=== PATIENT | male | born 1980 | race Caucasian/White ===

== ENCOUNTER 2023-01-18 05:41 | Day surgery (SDC) | payer SELFPAY ==
[2023-01-17 10:02] LABS: BASOPHILS % (AUTO) 0.7 % (0-1); EOSINOPHILS # (AUTO) 0.2 X10'3 (0-0.9); EOSINOPHILS % (AUTO) 2.8 % (0-6); LYMPHOCYTES # (AUTO) 1.2 X10'3 (1.1-4.8); LYMPHOCYTES % (AUTO) 17.5 % (21-51); MEAN CORPUSCULAR HEMOGLOBIN 30.6 PG (27.0-31.0); MEAN CORPUSCULAR HGB CONC 33.1 g/dL (33.0-36.5); MEAN CORPUSCULAR VOLUME 92.5 FL (78-98); MEAN PLATELET VOLUME 8.1 FL (7.4-10.4); MONOCYTES # (AUTO) 0.5 X10'3 (0-0.9); MONOCYTES % (AUTO) 7.2 % (2-12); NEUTROPHILS # (AUTO) 4.9 X10'3 (1.8-7.7); NEUTROPHILS % (AUTO) 71.8 % (42-75); PRE OP HEMATOCRIT 47.1 % (42.0-52.0); PRE OP HEMOGLOBIN 15.6 g/dL (14.0-17.9); PRE OP PLATELET COUNT 300 X10'3 (140-440); PRE OP WHITE BLOOD COUNT 6.8 10'3 (4.8-10.8); RED BLOOD COUNT 5.09 X10'6 (4.70-6.10); RED CELL DISTRIBUTION WIDTH 13.1 % (11.5-14.5)
[2023-01-17 10:12] LABS: ALBUMIN 3.8 G/DL (3.4-5.0); ALBUMIN/GLOBULIN RATIO 1.2 (1.1-1.5); ALKALINE PHOSPHATASE 65 IU/L (46-116); BLOOD UREA NITROGEN 15 MG/DL (7-18); CALCIUM 8.7 MG/DL (8.5-10.1); CHLORIDE 104 MMOL/L (99-107); CREATININE 0.88 MG/DL (0.60-1.10); PRE OP ALT 17 U/L (30-65); PRE OP ANION GAP 5 (8-16); PRE OP AST 14 U/L (10-37); PRE OP BILIRUB, TOTAL 0.3 MG/DL (0.0-1.0); PRE OP GLUCOSE 130 MG/DL (70-104); PRE OP SODIUM 140 MMOL/L (135-145); TOTAL CARBON DIOXIDE 30.8 MMOL/L (24-32); TOTAL PROTEIN 7.1 G/DL (6.4-8.2); eGFR > 90 ML/MIN
[~2023-01-18] VITALS: Ht 193 cm; Wt 108.0 kg
[2023-01-18] VITALS (7 sets, daily range): BP systolic 113–136; BP diastolic 70–86; PULSE 66–81; RESP 11–18; TEMP 98.4; O2SAT 97–100
[~2023-01-18 05:41] MED LIST: CEPH-585 PO; MAGNESIUM; METHYL B; VIT D; cefazolin 2gm/D5W 100mL 100 ML IV ONE; famotidine 20mg tablet PO ONE; ringers solution, lacted 1,000 ML IV SCH
[2023-01-18] MEDS ORDERED: BUPIVAcaine/PF 2.5 mg/ml (0.25%) 30ml vial ONE ×2 (06:37→06:50)
[2023-01-18] MEDS ORDERED: bacitracin 15gm ointment TP ONE (06:37)
[2023-01-18] MEDS ORDERED: midazolam 1 mg/ML 2ml injection ONE (07:13)
[2023-01-18] MEDS ORDERED: fentaNYL/PF 50MCG/1 ML 2ML syringe ONE (07:13)
[2023-01-18] MEDS ORDERED: etomidate 2mg/ml inj. ONE (07:13)
[2023-01-18] MEDS ORDERED: LIDOcaine 2% (20mg/ml) 5ml vial ONE (07:14)
[2023-01-18] MEDS ORDERED: propofol inj 20 ML IV ONE (07:14)
[2023-01-18] MEDS ORDERED: ondansetron/PF 4mg/2ml inj ONE (07:14)
[2023-01-18] MEDS ORDERED: dexamethasone sod phosphate 4mg/ml inj. ONE (07:14)
[2023-01-18] MEDS ORDERED: sevoflurane 250ml liquid IH ONE (07:19)
[2023-01-18] MEDS ORDERED: morphine 4 MG/ML inj SYRINge IV PRN (07:20)
[2023-01-18] MEDS ORDERED: ringers solution, lacted 1,000 ML IV SCH (07:20)
[2023-01-18] MEDS ORDERED: labetalol 20mg/4ml (5mg/ml) syringe IV PRN (07:20)
[2023-01-18] MEDS ORDERED: morphine 2 MG/ML inj. syringe IV PRN (07:20)
[2023-01-18] MEDS ORDERED: ondansetron/PF 4mg/2ml inj IV PRN (07:20)
[2023-01-18] MEDS ORDERED: acetaminophen 1,000mg/100ml IV 100 ML IV ONE (07:29)
[2023-01-18 07:37] LABS: BILIRUBIN,URINE NEGATIVE (Neg); CLARITY,URINE CLEAR (Clear); COLOR,URINE YELLOW (Yellow); GLUCOSE, URINE NEGATIVE (Neg); KETONES,URINE NEGATIVE (Neg); LEUKOCYTE ESTERASE ,URINE NEGATIVE (Neg); NITRITES, URINE NEGATIVE (Neg); OCCULT BLOOD,URINE NEGATIVE (Neg); PROTEIN,URINE NEGATIVE (Neg); UROBILINOGEN,URINE 0.2 E.U/dL (0.2-1.0)
[2023-01-18 07:38] LABS: UA COLLECTION TYPE NON-SPECIFIED
[2023-01-18] MEDS ORDERED: BUPIVAcaine/PF 2.5 mg/ml (0.25%) 30ml vial IJ ONE (07:39)
--- NOTE | 2023-01-18 08:01 | NUR ---
Received from OR via [facility], accompanied by Anesthesiologist and report given by JIM Anesthesiologist. PATIENT WAKING UP, NO S/S OF PAIN, V/S WNL, SCD ON , PIV 20G LEFT AC, LEFT LEG DRESSING C/D/I. Addendum: 01/18/23 at 0817 by Mahendra Bauman RN Amended: Links added.
--- NOTE | 2023-01-18 08:46 | NUR ---
ALL DISCHARGE CRITERIA HAS BEEN MET. VSS, PAIN AT A TOLERABLE LEVEL, ABLE TO SAFELY AMBULATE AND TRANSFER SELF. IV TAKEN OUT WITHOUT ANY COMPLICATIONS. ALL DISCHARGE INSTRUCTIONS COVERED WITH PATIENT AND ALL QUESTIONS ANSWERED. PATIENT TAKEN OUT VIA WHEELCHAIR WITH ALL BELONGINGS TO PERSONAL VEHICLE WHERE FAMILY DROVE PATIENT HOME. Addendum: 01/18/23 at 0855 by Mahendra Bauman RN Amended: Links added.
== END 2023-01-18 08:46 | disposition home or self-care (01) ==
LOC: PAS 05:41
PROVIDERS: ATTEND Podiatrist Foot & Ankle Surgery
DX: M79.5 Residual foreign body in soft tissue (principal); Z87.891 Personal history of nicotine dependence; Z98.890 Other specified postprocedural states; Z79.899 Other long term (current) drug therapy
CPT/HCPCS: 20525; 36415; 80053; 81003; 82948; 85025; 93005; A6223; J0131; J0690; J1100; J2250; J2405; J2704; J3010; J3490; J7030; J7120; Z7506; Z7512; 76000; A4215; A4618; A6449; A7000